=== PATIENT | female | born 1975 | race Hispanic/Latino ===

== ENCOUNTER 2019-07-24 09:25 | Emergency (ER) | payer SELFPAY ==
[2019-07-24] MEDS ORDERED: Acetaminophen 500 MG TAB ONE (10:38)
[2019-07-24] MEDS ORDERED: Metoclopramide HCl 10 MG/2 ML VIAL ONE (10:39)
[2019-07-24] MEDS ORDERED: diphenhydrAMINE 50 MG/ML VIAL ONE (10:39)
--- NOTE | 2019-07-24 12:07 | CT ---
CT OF BRAIN PERFORMED WITHOUT CONTRAST ENHANCEMENT: Date: 07/24/19 HISTORY: Headache x5 days. FINDINGS: The ventricular and cisternal system is within normal limits. There are no signs of intracerebral hem orrhage or extra-axial fluid collections. The mastoid air cells and visualized sinuses are clear. IMPRESSION: No acute intracranial abnormalities. POS: [facility]
== END 2019-07-24 12:08 | disposition home or self-care (01) ==
LOC: ERS 09:25
DX: R51 Headache (principal); H66.91 Otitis media, unspecified, right ear
CPT/HCPCS: 70450; 96361; 96374; 96375; J1200; J2765